=== PATIENT | male | born 1950 | race Caucasian/White ===

== ENCOUNTER 2019-08-09 08:39 | Emergency (ER) | payer MEDICARE, OTHER ==
[~2019-08-09] VITALS: Ht 188 cm; Wt 80.7 kg
--- NOTE | 2019-08-09 08:50 | NUR ---
DR CARBAJAL AT BEDSIDE
--- NOTE | 2019-08-09 08:50 | NUR ---
AG[facility] 88 FROM HOME, PER EMT "ROOM MATE CALLED AND DESCRIBED TIA-LIKE INCIDENT LAST NIGHT, NOW BACK TO NORMAL". TO ER BED 1, HOOKED TO MONITOR, PATIENT NOT ABLE TO RECALL WHAT HAPPENED LAST NIGHT. [place]AIL[place] ROOM MATE AT BEDSIDE DESCRIBED INSIDENT PATIENT NOT ABLE TO STAND UP, ALMOST FELL, CANNOT STEP BOTH FEET, CAN'T SPEAK COHERENTLY FOR ALMOST 30 MIN PER ROOM MATE. PATIENT CHANGED TO GOWN, PER PATIENT NO SYMPTOMS WHEN BROUGHT TO ER. AWAITING MD TRONCOSO.
--- NOTE | 2019-08-09 08:58 | NUR ---
PATIENT REFUSED IV PERIPHERAL INSERTION AND BLOOD DRAW. MADE AWARE
--- NOTE | 2019-08-09 09:00 | NUR ---
WHEELED OUT VIA [facility] FOR CT SCAN.
[2019-08-09] MEDS ORDERED: MULT-447 PO (09:01)
[2019-08-09] MEDS ORDERED: DABI150C PO (09:01)
[2019-08-09] MEDS ORDERED: SILD20TA2 PO (09:01)
[2019-08-09 09:53] LABS: BASOPHILS % (AUTO) 0.4 % (0.0-2.0); EOSINOPHILS % (AUTO) 6.6 % (0.0-6.0); HEMATOCRIT 42 % (39-51); HEMOGLOBIN 14.9 g/dL (13.5-17.5); LYMPHOCYTES % (AUTO) 33.5 % (20.0-44.0); MEAN CORPUSCULAR HGB CONC 36 g/dl (31.0-36.0); MEAN CORPUSCULAR VOLUME 135 fL (80-96); MONOCYTES # (AUTO) 0.2 /CMM (0.1-1.30); MONOCYTES % (AUTO) 4.2 % (2.0-12.0); NEUTROPHILS # (AUTO) 3.3 /CMM (1.8-8.9); NEUTROPHILS % (AUTO) 55.3 % (43.0-81.0); PLATELET COUNT (AUTO) 222 /CMM (150-450); RED BLOOD CELL COUNT(AUTO) 3.09 MIL/uL (4.5-6.0); WHITE BLOOD COUNT (AUTO) 5.9 K/uL (4.3-11.0)
[2019-08-09 10:02] LABS: CALCIUM, SERUM 8.7 mg/dL (8.5-10.1); CARBON DIOXIDE 23 mmol/L (21-32); CHLORIDE 106 mmol/L (98-107); CREATININE 0.9 mg/dL (0.6-1.3); GLUCOSE 84 mg/dL (74-106); POTASSIUM 3.9 mmol/L (3.5-5.1); SODIUM SERUM 142 mmol/L (136-145); UREA NITROGEN, BLOOD 10 mg/dL (7-18)
[2019-08-09 10:08] LABS: ALANINE AMINOTRANSFERASE 28 U/L (12-78); ALBUMIN 3.5 g/dL (3.4-5.0); ALKALINE PHOSPHATASE 85 U/L (46-116); ASPARTATE AMINOTRANSFERASE 23 U/L (15-37); BILIRUBIN,DIRECT 0.1 mg/dL (0.0-0.2); BILIRUBIN,TOTAL 0.5 mg/dL (0.2-1.0); TOTAL PROTEIN, SERUM 6.9 g/dL (6.4-8.2)
[2019-08-09 10:25] LABS: EOSINOPHILS % (MANUAL) 6 % (0-4); LYMPHOCYTES % (MANUAL) 40 % (16-48); MONOCYTES % (MANUAL) 2 % (0-11.0); NEUTROPHILS % (MANUAL) 52 (42-76)
--- NOTE | 2019-08-09 10:38 | NUR ---
Patient discharged to home in stable condition. Written and verbal after care instructions given. Patient verbalizes understanding of instruction.IV removed. Catheter intact and site benign. Pressure and 4x4 applied to site. No bleeding noted.
[2019-08-09 10:44] VITALS: BP 142/81
== END 2019-08-09 10:45 | disposition home or self-care (01) ==
LOC: ER 08:41
DX: G45.9 Transient cerebral ischemic attack, unspecified (principal); I45.10 Unspecified right bundle-branch block; R40.4 Transient alteration of awareness; Z86.718 Personal history of other venous thrombosis and embolism; Z90.89 Acquired absence of other organs; Z88.7 Allergy status to serum and vaccine
CPT/HCPCS: 36415; 70450-TC; 80048-TC; 80076-TC; 84484-TC; 85025-TC; 85730-TC; 93880-TC